=== PATIENT | male | born 1965 | race American Indian/Alaskan Native ===

== ENCOUNTER 2018-08-02 10:41 | Day surgery (SDC) | payer MEDICARE, BC ==
[~2018-08-02 10:41] MED LIST: ANCEF/STERILE WATER 2 GM/20 ML 2 GM/20 ML SYRINGE IV NR; NACL 0.9% 1000 ML 1,000 ML IV SCH
[2018-08-02] MEDS ORDERED: NACL 0.9% 500 ML 500 ML IV SCH (13:00)
[2018-08-02] MEDS ORDERED: HEPARIN/NS 5000 UNIT/500ML(CATH LAB) 1,000 ML IR ONE (16:29)
[2018-08-02] MEDS ORDERED: HEPARIN 10,000 UNITS/10 ML ONE (16:29)
[2018-08-02] MEDS ORDERED: ANCEF/STERILE WATER 2 GM/20 ML 2 GM/20 ML SYRINGE IV ONE (16:31)
[2018-08-02] MEDS: SUBLIMAZE ONE ×3 (16:53→17:55)
[2018-08-02] MEDS: VERSED ONE ×3 (16:53→17:55)
[2018-08-02] MEDS: XYLOCAINE 2% INFILTRATI ONE ×3 (16:54→17:25)
[2018-08-02] MEDS ORDERED: HEPARIN/NS 5000 UNIT/500ML(CATH LAB) 500 ML IR ONE ×2 (17:23→17:38)
--- NOTE | 2018-08-02 18:12 | Post Operative Note ---
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 Successful thrombectomy angioplasty and clot removal with good thrill and bruit and access. Procedure: Percutaneous mechanical thrombectomy of hemodialysis graft with fistulogram and imaging of the central circulation and balloon angioplasty of the peripheral dialysis circuit #2 duplex guided cannulation of AV graft cross catheter technique Anesthesia: other (moderate sedation start time 1704 ending time 1803 total sedation time 59 minutes) Surgeon: JOHN HENRY Estimated blood loss: minimal Pathology: none Condition: stable Disposition: same day
--- NOTE | 2018-08-02 18:29 | Short Stay Summary ---
Short Stay Documentation Date of service: 08/02/18 Narrative H&P: Admitted to the [facility] for outpatient declotting of a thrombosed AV graft - History H&P: obtained from office - Allergies and Medications Current Medications: Allergies No Known Allergies Allergy (Verified 07/19/15 07:29) Home Medications Medication Instructions Recorded Confirmed Last Taken Type Midodrine HCl 2.5 mg PO QDAY 08/02/14 08/02/18 08/02/18 History 1 tab B Complex 11/Folic/C/Biot/Zinc 1 each PO DAILY #30 tablet 07/19/15 08/02/18 08/01/18 Rx [Dialyvite with Zinc Tablet] 1 tab Cinacalcet [Sensipar] 30 mg PO DAILY #30 tablet 07/19/15 08/02/18 08/01/18 Rx 1 tab Sevelamer Carbonate [Renvela] 800 mg PO TIDWM 08/04/15 08/02/18 08/01/18 History 1 Tab Active Medications Cefazolin Sodium (Ancef/Sterile Water 2 Gm/20 Ml) 2 gm in 20 mls @ 80 mls/hr IV PREOP NR; Protocol Stop: 08/02/18 23:59 Sodium Chloride (Nacl 0.9% 500 Ml) 500 mls @ 50 mls/hr IV DIRECT ROM - Brief post op/procedure progress note Date of procedure: 08/02/18 Procedure: 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 Successful thrombectomy angioplasty and clot removal with good thrill and bruit and access. Procedure: Percutaneous mechanical thrombectomy of hemodialysis graft with fistulogram and imaging of the central circulation and balloon angioplasty of the peripheral dialysis circuit #2 duplex guided cannulation of AV graft cross catheter technique Anesthesia: other (moderate sedation start time 1704 ending time 1803 total sedation time 59 minutes) Surgeon: JOHN HENRY Estimated blood loss: minimal Pathology: none Condition: stable Disposition: same day - Disposition Condition at discharge: Stable Disposition: DC-01 TO HOME OR SELFCARE - Discharge Diagnoses (1) Hyperkalemia, diminished renal excretion Status: Acute Comment: I have placed a call to patient's nephrology group for instructions specifically Kayexalate versus more urgent dialysis (2) Thrombosis of kidney dialysis arteriovenous graft Status: Acute Qualifiers: Encounter type: initial encounter Qualified Code(s): T82.868A - Thrombosis due to vascular prosthetic devices, implants and grafts, initial encounter Short Stay Discharge Plan Activity: advance as tolerated Weight Bearing Status: Full Weight Bearing Diet: renal Wound: keep clean and dry Special Instructions: no heavy lifting Follow up with: ARAMIS MADSEN MD [Primary Care Provider] - 7 Days ROSITA CHADWICK MD [Staff Physician] - 7 Days
--- NOTE | 2018-08-02 18:53 | Operative Report ---
Operative Report Operative Report: Date of procedure: 08/02/2018 Pre-operative diagnosis: Thrombosed AV graft left arm, end-stage renal disease Post-operative diagnosis: Same Procedure name(s): Percutaneous mechanical thrombectomy hemodialysis graft left arm with balloon angioplasty of peripheral dialysis circuit, ultrasound guided cannulation cross catheter technique Surgeon: Rory Carias MD Market Developer: None Anesthesia: Moderate sedation 59 minute total EBL: Negligible Specimen(s): None Complications: None Findings: 50-70% in-stent stenosis at the venous outflow tract, 30% stenosis of the distal subclavian vein at the first rib and not treated, large pseudoaneurysm with significant clot load successfully removed with AngioJet. Good thrill and bruit in access at procedure completion Procedure: Patient in the supine position with the left arm extended the entire extremity was prepped and draped using standard sterile technique. Percutaneous access was obtained through anesthetized skin using ultra sound guidance and micropuncture technique in an antegrade fashion with the needle oriented towards the venous anastomosis. Microwire was advanced and a micro-sheath was placed successfully in the AV graft. Guidewire was then advanced and successfully passed across a venous anastomotic stenosis. A 6 [place] introducer was placed and the patient was heparinized. A vertebral catheter was advanced all the way into the central circulation as vessels were evaluated for stenosis. Moderate stenosis at the first rib was encountered but it was not considered flow limiting and therefore not treated. Because of the large thrombotic load and the pseudoaneurysms at the cannulation site I elected to use a treratola device was then successfully passed through the venous outflow stenosis and then carefully withdrawn into the AV graft. This was done multiple times until significant amount of the thrombus was removed and all but the cannulation pseudoaneurysms. A small amount of contrast was gently injected confirming graft patency and confirming the location of the venous anastomotic stenosis. An [8 x 4] balloon was then obtained and advanced across the stenosis and insufflated to profile. This was done several times throughout the entire venous end of the anastomosis in the graft. Stenosis were improved or eliminated. The remaining thrombus in the graft towards the venous end was easily macerated. Contrast injection showed resolution of the stenosis. A second sheath was then placed in a retrograde fashion also through anesthetized skin using micropuncture technique. A treratola device was then inserted through the arterial anastomosis and withdrawn dislodging the fibrin plug and resulting in low into the pseudoaneurysm. Large amount of thrombus however precluded a functioning access. I then obtained an AngioJet and advanced it through the entire pseudoaneurysm and into the venous outflow tract. I was pleasantly surprised to see that almost all the thrombus had been removed. Repeat contrast injections showed some residual thrombus in the main body of the graft. This was extracted by AngioJet and external maceration technique. Graft developed an excellent thrill and bruit. Reflux examination showed no arterial stenosis and excellent flow down the arm. The procedure was then terminated by removal of all guidewires and catheters. Each sheath was removed over a pursestring chromic suture. Hemostasis was obtained using counter pressure. Sk in was sealed with octylseal. Patient returned the recovery area in stable condition having tolerated the procedure well. Excellent thrill and bruit were noted. Good radial pulse. Dialysis access is ready for cannulation.
[2018-08-02 19:22] VITALS: BP 119/62
[2018-08-02] MEDS ORDERED: KIONEX PO ONE (19:30)
== END 2018-08-02 10:42 | disposition home or self-care (01) ==
LOC: CATHLABREC 10:41
PROVIDERS: ATTEND Surgery Vascular Surgery
DX: T82.868A Thrombosis due to vascular prosthetic devices, implants and grafts, initial encounter (principal); T82.858A Stenosis of other vascular prosthetic devices, implants and grafts, initial encounter; I12.0 Hypertensive chronic kidney disease with stage 5 chronic kidney disease or end stage renal disease; N18.6 End stage renal disease; D64.9 Anemia, unspecified; E66.9 Obesity, unspecified; Z68.31 Body mass index [BMI] 31.0-31.9, adult; Z99.2 Dependence on renal dialysis; Z98.890 Other specified postprocedural states; Z80.0 Family history of malignant neoplasm of digestive organs; Z83.3 Family history of diabetes mellitus; Z79.899 Other long term (current) drug therapy; Z87.440 Personal history of urinary (tract) infections; Z87.442 Personal history of urinary calculi; Z82.49 Family history of ischemic heart disease and other diseases of the circulatory system; Y83.8 Other surgical procedures as the cause of abnormal reaction of the patient, or of later complication, without mention of misadventure at the time of the procedure; Y92.89 Other specified places as the place of occurrence of the external cause
CPT/HCPCS: 36415; 36905; 76937; 84132; 99156; 99157; C1725; C1751; C1757; C1894; J0690; J1644; J2250; J3010; J7040; Q9967